=== PATIENT | female | born 1935 | race Caucasian/White ===

== ENCOUNTER 2022-02-26 16:46 | Emergency (ER) | payer BC, MEDICARE ==
[~2022-02-26] VITALS: Ht 157.5 cm; Wt 57.6 kg
[2022-02-26] MEDS ORDERED: LIDOCAINE W/ EPINEPHRINE 1% 20ML VIAL SC ONE (22:15)
[2022-02-27] MEDS ORDERED: TETANUS-DIPTH-ACEL PERTUSSIS 0.5ML SYR Tdap IM ONE (00:45)
[2022-02-27] MEDS ORDERED: NEOMYCIN-BACITRACIN-POLYM UNITDOSE PKG TOP OINT TOP ONE (01:00)
[2022-02-27 02:09] VITALS: BP 185/82
== END 2022-02-27 02:02 | disposition home or self-care (01) ==
LOC: ER 16:46
DX: S01.111A Laceration without foreign body of right eyelid and periocular area, initial encounter (principal); S09.90XA Unspecified injury of head, initial encounter; J45.909 Unspecified asthma, uncomplicated; I10 Essential (primary) hypertension; Z95.0 Presence of cardiac pacemaker; Z91.040 Latex allergy status; W01.0XXA Fall on same level from slipping, tripping and stumbling without subsequent striking against object, initial encounter; Y93.89 Activity, other specified; Y92.89 Other specified places as the place of occurrence of the external cause; Y99.8 Other external cause status
CPT/HCPCS: 12013; 70450; 72040; 90471; 90715